=== PATIENT | female | born 1970 | race Two or more races ===

== ENCOUNTER 2020-08-05 11:21 | Emergency (ER) | payer MEDICAID ==
[2020-08-05] MEDS ORDERED: KETOROLAC TROMETHAMINE INJ/PF 30 MG/1 ML SDV IV ONE ×2 (13:12→16:45)
[2020-08-05] MEDS ORDERED: DIPHENHYDRAMINE HCL 50 MG/ML VIAL IV ONE ×2 (13:12→16:45)
[2020-08-05] MEDS ORDERED: METOCLOPRAMIDE HCL INJ/PF 10 MG/2 ML SDV IV ONE ×2 (13:12→16:45)
[2020-08-05] MEDS ORDERED: RINGERS SOLUTION,LACTATED 1,000 ML IV ONE ×2 (13:13→16:45)
--- NOTE | 2020-08-05 13:13 | ER Document Report ---
ED Medical Screen (RME) - General Chief Complaint: Headache Stated Complaint: HEADACHE,DIZZINESS Time Seen by Provider: 08/05/20 13:07 Mode of Arrival: Ambulatory Information source: Patient Notes: HPI; 50-year-old female here visiting from [place] with a past medical history significant for migraines and hypertension presents to the emergency room complaining of a worsening migraine for the past 4 days. States she is been taking her Fioricet without relief. Complains of nausea, photophobia and dizziness. Denies any recent head trauma or head injury. Patient states the headache is located between her left eye radiating down to the back of her neck. Describes it as a throbbing pulsating headache. No sudden thunderclap. Not worst headache of her life. States it is more severe than her previous headaches. PE: Alert and oriented x3. PERRLA, EOMI lungs: Clear to auscultation without rales, rhonchi, wheezes. Heart: Regular rate rhythm without murmurs, rubs, gallops. I have greeted and performed a rapid initial assessment of this patient. A comprehensive ED assessment and evaluation of the patient, analysis of test results and completion of the medical decision making process will be conducted by additional ED providers. I have specifically instructed the patient or family members with the patient to immediately return to any nursing staff should anything change in the patient's condition or with their chief complaint. TRAVEL OUTSIDE OF THE [place] IN LAST 30 DAYS: No
--- NOTE | 2020-08-05 15:08 | RADIOLOGY REPORT (SQ) ---
EXAM DESCRIPTION: CT HEAD WITHOUT IMAGES COMPLETED DATE/TIME: 08/05/2020 1:40 pm REASON FOR STUDY: headache COMPARISON: None. TECHNIQUE: Axial images acquired through the brain without intravenous contrast. Images reviewed wi th bone, brain and subdural windows. Additional sagittal and coronal reconstructions were generated. Images stored on PACS. All CT scanners at this facility use dose modulation, iterative reconstruction, and/or weight based d osing when appropriate to reduce radiation dose to as low as reasonably achievable (ALARA). [facility]: Dose Right [facility]: CareDose [facility]: Dose Right [facility]: Teradose 4D [facility]: [facility] [facility] RADIATION DOSE: CT Rad equipment meets quality standard of care and radiation dose reduction techniq ues were employed. CTDIvol: 48.8 mGy. DLP: 859 mGy-cm. mGy. LIMITATIONS: None. FINDINGS: VENTRICLES: Normal size and contour. CEREBRUM: No masses. No hemorrhage. No midline shift. No evidence for acute infarction. Normal gra y/white matter differentiation. No areas of low density in the white matter. CEREBELLUM: No masses. No hemorrhage. No alteration of density. No evidence for acute infarction. EXTRAAXIAL SPACES: No fluid collections. No masses. ORBITS AND GLOBE: No intra- or extraconal masses. Normal contour of globe without masses. CALVARIUM: No fracture. PARANASAL SINUSES: No fluid or mucosal thickening. SOFT TISSUES: No mass or hematoma. OTHER: No other significant finding. IMPRESSION: NO ACUTE INTRACRANIAL IMAGING FINDINGS. EVIDENCE OF ACUTE STROKE: NO. COMMENT: Quality ID # [id number]: Final reports with documentation of one or more dose reduction techniques (e.g., Automated exposure control, adjustment of the mA and/or kV according to patient size, use of iterative reconstruction technique) TECHNICAL DOCUMENTATION: JOB ID: [id number] 2010 [employer]- All Rights Reserved Reading location - IP/workstation name: [email or web address]
--- NOTE | 2020-08-05 17:57 | ER Document Report ---
HPI - HPI Patient complains to provider of: headache Time Seen by Provider: 08/05/20 13:07 Pain Level: 5 Context: 50-year-old female past medical history significant for migraines here visiting from [place] presents to the emergency room complaining of a ongoing headache for the past 4 days. Complains of photophobia. Has been using her Fioricet without relief. Complains of nausea with dizziness. States the headache is behind her left eye radiating to the left side of her head and neck. She denies any trauma or injury. No fevers. No COVID-19 exposure. No sudden thunderclap. Denies worst headache of her life. States her headaches usually go away within a day with Fioricet and this 1 is just been persistent. Denies . Associated Symptoms: None Exacerbated by: Denies Relieved by: Denies Similar symptoms previously: Yes - History of migraines Recently seen / treated by doctor: No - ROS Systems Reviewed and Negative: Yes All other systems reviewed and negative - CONSTITUTIONAL Constitutional: DENIES: Fever - EENT EENT: DENIES: Ear Pain, Congestion - NEURO Neurology: REPORTS: Headache, Dizzinesss / Vertigo. DENIES: Vision blurred - RESPIRATORY Respiratory: DENIES: Trouble Breathing - REPRODUCTIVE Reproductive: DENIES: : - DERM Skin Color: Normal Skin Problems: None Past Medical History - General Information source: Patient - Social History Smoking Status: Never Smoker Frequency of alcohol use: Social Drug Abuse: None Family History: Other - Migraines Vertical Provider Document - CONSTITUTIONAL Agree With Documented VS: Yes Exam Limitations: No Limitations General Appearance: Moderate Distress - INFECTION CONTROL TRAVEL OUTSIDE OF THE [place] IN LAST 30 DAYS: No - HEENT HEENT: Atraumatic, Normal ENT Exam, Normocephalic, PERRLA. negative: Pharyngeal Exudate, Pharyngeal Tenderness, Pharyngeal Erythema, Tympanic Membrane Red, Tympanic Membrane Bulging Notes: Bilateral photophobia noted. - NECK Neck: Normal Inspection, Supple, Thyroid Normal - RESPIRATORY Respiratory: Breath Sounds Normal, No Respiratory Distress - CARDIOVASCULAR Cardiovascular: Regular Rate, Regular Rhythm, No Murmur - NEURO Level of Consciousness: Awake, Alert, Appropriate Motor/Sensory: No Motor Deficit, No Sensory Deficit - DERM Integumentary: Warm, Dry Course - Re-evaluation Re-evalutation: 08/05/20 17:57 Patient is resting comfortably states her headache has resolved. Reviewed CAT scan results with patient. She is to continue with her Fioricet as prescribed. Follow-up with her primary care physician on returning home. Patient was given strict return to the emergency room guidelines. Return for any new or worsening symptoms. All questions were answered. Patient verbalized understanding and agrees with plan of care. - Laboratory Results Critical Laboratory Results Reviewed: No Critical Results - Radiology Results Critical Radiology Results Reviewed: No Critical Results Discharge - Discharge Clinical Impression: Migraine headache Qualifiers: Migraine type: without aura Status migrainosus presence: without status migrainosus Intractability: not intractable Qualified Code(s): G43.009 - Migraine without aura, not intractable, without status migrainosus Condition: Stable Disposition: HOME, SELF-CARE Instructions: Migraine Headache ([facility]) Additional Instructions: Continue with your Fioricet as prescribed. Follow-up with your primary care physician on returning home. Return to the emergency room for any new or worsening symptoms.
[2020-08-05 18:05] VITALS: BP 137/89
== END 2020-08-05 18:13 | disposition home or self-care (01) ==
LOC: ER 11:21
DX: G43.009 Migraine without aura, not intractable, without status migrainosus (principal); H53.149 Visual discomfort, unspecified; R42 Dizziness and giddiness
CPT/HCPCS: 99285; 96361; 96374; 96375; 70450; J1200; J1885; J2765; J7120